=== PATIENT | female | born 1960 | race Caucasian/White ===

== ENCOUNTER 2022-12-15 09:31 | Emergency (ER) | payer OTHER, SELFPAY ==
--- NOTE | 2022-12-15 09:33 | ED.HEATRA ---
HPI - Head Injury General Chief complaint: Fall Stated complaint: fall, head injury Time Seen by Provider: 12/15/22 09:32 Source: patient Mode of arrival: ambulatory Limitations: no limitations History of Present Illness HPI Narrative: Francesca is a 62-year-old female patient presenting to the clinic today with complaints of a head injury from a fall. She reports she fell off the porch this morning and hit her head on some landscaping lighting. States she lost her balance when coming down the steps and fell and hit her head. She denies any loss of consciousness or neck pain. Denies headache but has tenderness to laceration to the back of her head rating pain of 5/10. She denies any confusion, nausea/vomiting, dizziness, unsteady gait, visual changes, chest pain, or shortness of breath. Tetanus UTD Related Data Home Medications Medication Instructions Recorded Confirmed No Home Medications 12/15/22 12/15/22 Allergies Allergy/AdvReac Type Severity Reaction Status Date / Time No Known Allergies Allergy Verified 12/15/22 09:41 Review of Systems Review of Systems: Pertinent positives per HPI. Patient denies any fever, chills, rash, headache, visual changes, dizziness, cough, runny nose, sore throat, shortness of breath, chest pain, palpitations, nausea, vomiting, diarrhea, constipation, abdominal pain, or any urinary issues. PMFSH Family History Family History Mother Diabetes mellitus Cerebrovascular accident Family history of malignant neoplasm of breast in first degree relative Father Family history of congenital heart disease Cerebrovascular accident Social History Social History Smoking status: Never smoker Alcohol intake: never Comments At the time of my signature, I reviewed and agree with the nursing past medical, surgical, social, and family history. There is no relevant family history pertinent to the patient complaint. Exam Narrative: General: Well-developed, well nourished, in no apparent distress Head: Normocephalic, atraumatic Eyes: Pupils equally round and reactive to light bilaterally, EOM intact, sclera and conjunctive clear, no discharge, lids normal Ears: TMs intact and clear, ear canals clear, no drainage, grossly hearing normal. Nose: Nares patent, no discharge, no inflammation, no sinus tenderness. Mouth: Oropharynx without lesions or masses, good dentition, MMM. Tongue midline, even rise and fall of uvula Neck: Supple, trachea midline, no enlargement of anterior or posterior cervical nodes, no thyroid masses or goiter palpable. Cardio: Regular rate and rhythm, s1 and s2 normal, no murmur appreciated. Resp: Clear to auscultation bilaterally anteriorly and posteriorly, no rhonchi, rales, wheezing or rubs Musculoskeletal: No deformity, non-tender to palpation, grossly normal range of motion, muscle strength strong and equal, peripheral pulse strong, no edema, no cyanosis, normal gait and station Neuro: Alert and oriented x4 with normal speech, no focal deficits, cranial nerves I through XII intact, muscle strength 5 out of 5, sensation intact bilaterally. Skin: [place], warm, dry, flap laceration measuring 3cm in total-wound was cleansed with parameter and normal saline and for ilnda were placed bringing the wound edges well approximate Course Course Emergency Course: Portions of this record may have been created with voice recognition software. Level of Care: Express Care Visit Vital Signs Vital signs: Vital Signs Temperature 36.8 C 12/15/22 09:47 Pulse Rate 83 12/15/22 09:47 Respiratory Rate 16 12/15/22 09:47 Pulse Oximetry 98 12/15/22 09:47 Temperature 36.8 C 12/15/22 09:47 Pulse Rate 83 12/15/22 09:47 Respiratory Rate 16 12/15/22 09:47 Pulse Oximetry 98 12/15/22 09:47 Vital signs reviewed Procedures [place]
[2022-12-15 09:47] VITALS: PULSE 83; RESP 16; TEMP 36.8; O2SAT 98
== END 2022-12-15 10:07 | disposition home or self-care (01) ==
PROVIDERS: Emergency Provider Nurse Practitioner Family; PCP Internal Medicine Geriatric Medicine
DX: S09.90XA Unspecified injury of head, initial encounter (principal); W17.89XA Other fall from one level to another, initial encounter; S01.01XA Laceration without foreign body of scalp, initial encounter
CPT/HCPCS: 12002; 99213; G0463